=== PATIENT | male | born 1935 | race African-American/Black ===

== ENCOUNTER 2017-02-23 14:33 | Emergency (ER) | payer MEDICARE ==
[2017-02-23 14:52] VITALS: BP 131/66
[2017-02-23] MEDS ORDERED: MECLIZINE HCL 25 MG TABLET PO ONE (15:51)
[2017-02-23] MEDS ORDERED: NORMAL SALINE 1000 ML 1,000 ML IV ONE (15:51)
--- NOTE | 2017-02-23 15:53 | ER Document Report ---
ED Medical Screen (RME) - General Chief Complaint: Dizziness Stated Complaint: DIZZINESS Time Seen by Provider: 02/23/17 15:50 TRAVEL OUTSIDE OF THE [place] IN LAST 30 DAYS: No - HPI Notes: 02/23/17 15:52 Abdominal pain and constipation ongoing for 3-4 days of dizziness today. Patient states feels like the room is spinning around feels like he is drunk. Patient has a history of a heart valve replacement is on Coumadin. States last INR was 2.1 checked last week - Related Data Allergies/Adverse Reactions: Penicillins Allergy (Intermediate, Verified 02/23/17 14:52) swelling Wndpbcp-Ofo-Vlp Reductase Inhibitor Allergy (Mild, Verified 02/23/17 14:52) unknown Past Medical History - Past Medical History Cardiac Medical History: Reports: Hx Hypertension - LISINOPRIL, METOPROLOL Denies: Hx Heart Attack Pulmonary Medical History: Denies: Hx Asthma Neurological Medical History: Denies: Hx Cerebrovascular Accident, Hx Seizures Renal/ Medical History: Denies: Hx Peritoneal Dialysis GI Medical History: Denies: Hx Hepatitis, Hx Hiatal Hernia, Hx Ulcer Infectious Medical History: Denies: Hx Hepatitis Past Surgical History: Reports: Hx Cardiac Surgery, Hx Open Heart Surgery - HEART VALVE INSERTED. Denies: Hx Pacemaker - Immunizations Hx Diphtheria, Pertussis, Tetanus Vaccination: - unknown Review of Systems - Review of Systems Constitutional: Other - Dizziness Physical Exam - Vital signs Vitals: Temp Pulse Resp BP Pulse Ox 97.8 F 62 16 131/66 H 96 02/23/17 14:47 02/23/17 14:47 02/23/17 14:47 02/23/17 14:47 02/23/17 14:47 - Respiratory Respiratory status: No respiratory distress Chest status: Nontender Breath sounds: Normal Chest palpation: Normal Course - Vital Signs Vital signs: Temp Pulse Resp BP Pulse Ox 97.8 F 62 16 131/66 H 96 02/23/17 14:47 02/23/17 14:47 02/23/17 14:47 02/23/17 14:47 02/23/17 14:47
[2017-02-23 16:24] LABS: ABSOLUTE EOSINOPHILS # (AUTO) 0.1 10^3/uL (0.0-0.6); ABSOLUTE LYMPHOCYTES (AUTO) 1.5 10^3/uL (0.5-4.7); ABSOLUTE MONOCYTES (AUTO) 0.8 10^3/uL (0.1-1.4); ABSOLUTE NEUT (AUTO) 1.4 10^3/uL (1.7-8.2); BASOPHILS % (AUTO) 0.4 % (0-2); EOSINOPHILS % (AUTO) 3.2 % (0-6); HEMATOCRIT 47.9 % (37.9-51.0); HEMOGLOBIN 16.4 g/dL (13.5-17.0); HGB HCT DIFFERENCE 1.3; LYMPHOCYTES % (AUTO) 39.7 % (13-45); MEAN CORPUSCULAR HGB CONC 34.1 g/dL (32.0-36.0); MEAN CORPUSCULAR VOLUME 97 fl (80-97); MONOCYTES % (AUTO) 19.9 % (3-13); RED BLOOD COUNT 4.97 10^6/uL (4.35-5.55); RED CELL DISTRIBUTION WIDTH 14.6 % (11.5-14.0); SEGMENTED NEUTROPHILS % (AUTO) 36.8 % (42-78); WHITE BLOOD COUNT 3.8 10^3/uL (4.0-10.5)
[2017-02-23 16:30] LABS: PARTIAL THROMBOPLASTIN TIME 39.9 SEC (23.5-35.8)
[2017-02-23 16:43] LABS: ALANINE AMINOTRANSFERASE 51 U/L (21-72); ALBUMIN 4.4 g/dL (3.5-5.0); ALKALINE PHOSPHATASE 67 U/L (38-126); ANION GAP 13 (5-19); ASPARTATE AMINO TRANSFERASE 55 U/L (17-59); BILIRUBIN,DIRECT 0.4 mg/dL (0.0-0.4); BILIRUBIN,TOTAL 0.9 mg/dL (0.2-1.3); BLOOD UREA NITROGEN 18 mg/dL (7-20); CALCIUM 10.4 mg/dL (8.4-10.2); CARBON DIOXIDE 28 mmol/L (22-30); CHLORIDE 98 mmol/L (98-107); CREATININE RESULT 1.18 mg/dL (0.52-1.25); GLUCOSE 109 mg/dL (75-110); LIPASE 278.9 U/L (23-300); MAGNESIUM 2.5 mg/dL (1.6-2.3); POTASSIUM 4.6 mmol/L (3.6-5.0); SODIUM 139.1 mmol/L (137-145); TOTAL PROTEIN 7.6 g/dL (6.3-8.2)
--- NOTE | 2017-02-23 16:55 | RADIOLOGY REPORT (SQ) ---
EXAM DESCRIPTION: ACUTE ABDOMEN SERIES COMPLETED DATE/TIME: 02/23/2017 4:47 pm REASON FOR STUDY: abd pain n/v COMPARISON: None. NUMBER OF VIEWS: Three views. TECHNIQUE: Frontal chest, supine abdomen and upright/decubitus abdomen radiographic images acquired. LIMITATIONS: None. FINDINGS: CHEST: Lungs clear of infiltrates. FREE AIR: None. No abnormal gas collections. BOWEL GAS PATTERN: Nonobstructive pattern. No dilated loops or air fluid levels. CALCIFICATIONS: No suspicious calcifications. HARDWARE: None in the abdomen. SOFT TISSUES: No gross mass or suggestion of organomegaly. BONES: No acute fracture. No worrisome bone lesions. OTHER: Median sternotomy wires noted and intact. Prior CABG. IMPRESSION: NO RADIOGRAPHIC EVIDENCE FOR ACUTE ABDOMINAL DISEASE. TECHNICAL DOCUMENTATION: JOB ID: [id number] [employer]- All Rights Reserved
--- NOTE | 2017-02-23 17:00 | RADIOLOGY REPORT (SQ) ---
EXAM DESCRIPTION: CT HEAD WITHOUT COMPLETED DATE/TIME: 02/23/2017 4:51 pm REASON FOR STUDY: dizzy COMPARISON: 04/09/2014 TECHNIQUE: Axial images acquired through the brain without intravenous contrast. Images reviewed wi th bone, brain and subdural windows. Images stored on PACS. All CT scanners at this facility use dose modulation, iterative reconstruction, and/or weight based d osing when appropriate to reduce radiation dose to as low as reasonably achievable (ALARA). [facility]: Dose Right [facility]: CareDose [facility]: Dose Right [facility]: Teradose 4D [facility]: HealthUnlocked RADIATION DOSE: mGy. LIMITATIONS: None. FINDINGS: VENTRICLES: Prominent. CEREBRUM: No masses. No hemorrhage. No midline shift. Areas of low density in the white matter mos t likely due to chronic micro-vascular ischemic change. No evidence for acute infarction. CEREBELLUM: No masses. No hemorrhage. No alteration of density. No evidence for acute infarction. EXTRAAXIAL SPACES: Age-related involutional change. No fluid collections. No masses. ORBITS AND GLOBE: No intra- or extraconal masses. Normal contour of globe without masses. CALVARIUM: No fracture. PARANASAL SINUSES: No fluid or mucosal thickening. SOFT TISSUES: No mass or hematoma. OTHER: No other significant finding. IMPRESSION: CHRONIC CHANGES OF ATROPHY AND MICROVASCULAR ISCHEMIA. NO ACUTE PROCESS. TECHNICAL DOCUMENTATION: JOB ID: [id number] Quality ID # [id number]: Final reports with documentation of one or more dose reduction techniques (e.g., Au tomated exposure control, adjustment of the mA and/or kV according to patient size, use of iterative reconstruction technique) 2010 [employer]- All Rights Reserved
--- NOTE | 2017-02-23 17:14 | ER Document Report ---
ED Dizziness/Weakness - General Information source: Patient TRAVEL OUTSIDE OF THE [place] IN LAST 30 DAYS: No - HPI Patient complains to provider of: Dizziness Onset: This morning Associated symptoms: Other - see above <PINA GONZALEZ - Last Filed: 02/23/17 17:49> <DREW ALLISON - Last Filed: 02/24/17 00:14> - General Chief Complaint: Dizziness Stated Complaint: DIZZINESS Time Seen by Provider: 02/23/17 15:50 Notes: Patient is an 81 year old male who presents to the ED with complaints of dizziness with onset this morning while he was ironing a shirt. Patient states he had some improvement when he sat down and the dizziness was worse when he was standing and moving around. Patient states it does not get worse when turning his head from side to side. He denies nausea, chest pain, dyspnea, or blurred vision. He has had some rhinnorhea and right ear ringing but denies congestion. He is on Coumadin. Patients family member adds that the patient has had some heartburn recently. He took some Pepcid and Apple Cider Vinegar water with relief. PCP: BRADLEY (PINA GONZALEZ) - Related Data Allergies/Adverse Reactions: Penicillins Allergy (Intermediate, Verified 02/23/17 14:52) swelling Pntouns-Dlh-Iqp Reductase Inhibitor Allergy (Mild, Verified 02/23/17 14:52) unknown Past Medical History - General Information source: Patient - Social History Smoking Status: Never Smoker Chew tobacco use (# tins/day): No Frequency of alcohol use: None Drug Abuse: None Family History: Reviewed & Not Pertinent Patient has suicidal ideation: No Patient has homicidal ideation: No - Past Medical History Cardiac Medical History: Reports: Hx Hypertension - LISINOPRIL, METOPROLOL Denies: Hx Heart Attack Pulmonary Medical History: Denies: Hx Asthma Neurological Medical History: Denies: Hx Cerebrovascular Accident, Hx Seizures Renal/ Medical History: Denies: Hx Peritoneal Dialysis GI Medical History: Denies: Hx Hepatitis, Hx Hiatal Hernia, Hx Ulcer Infectious Medical History: Denies: Hx Hepatitis Past Surgical History: Reports: Hx Cardiac Surgery, Hx Open Heart Surgery - HEART VALVE INSERTED. Denies: Hx Pacemaker - Immunizations Hx Diphtheria, Pertussis, Tetanus Vaccination: - unknown <PINA GONZALEZ - Last Filed: 02/23/17 17:49> Review of Systems - Review of Systems Constitutional: No symptoms reported EENT: See HPI, Other - rhinorrhea, right ear ringing. denies: Blurred vision, Nose congestion Cardiovascular: See HPI, Dizziness. denies: Chest pain Respiratory: See HPI. denies: Short of breath Gastrointestinal: See HPI. denies: Nausea Genitourinary: No symptoms reported Male Genitourinary: No symptoms reported Musculoskeletal: No symptoms reported Skin: No symptoms reported Hematologic/Lymphatic: No symptoms reported Neurological/Psychological: No symptoms reported <CARLOSABHISHEKPINA - Last Filed: 02/23/17 17:49> Physical Exam <CARLOSPINA - Last Filed: 02/23/17 17:49> <DREW ALLISON - Last Filed: 02/24/17 00:14> - Vital signs Vitals: Temp Pulse Resp BP Pulse Ox 97.8 F 62 16 131/66 H 96 02/23/17 14:47 02/23/17 14:47 02/23/17 14:47 02/23/17 14:47 02/23/17 14:47 - Notes Notes: GENERAL: Alert, interacts well. No acute distress. HEAD: Normocephalic, atraumatic. EYES: Pupils equal, round, and reactive to light. Extraocular movements intact. ENT: Oral mucosa moist, tongue midline. Nares patent, no nasal septal hematoma. No post nasal drip. Left TM is normal, right TM is bulging and injected. NECK: Full range of motion. Supple. Trachea midline. LUNGS: Clear to auscultation bilaterally, no wheezes, rales, or rhonchi. No respiratory distress. HEART: Regular rate and rhythm. 2/6 systolic murmur with closing click. No gallops, or rubs. ABDOMEN: Soft, non-tender. Non-distended. Bowel sounds present in all 4 quadrants. EXTREMITIES: Moves all 4 extremities spontaneously. No edema, radial and dorsalis pedis pulses 2/4 bilaterally. No cyanosis. NEUROLOGICAL: Alert and oriented x3. Normal speech. cranial nerves II through XII grossly intact. Normal finger to nose and heel to triplett test. Biceps and patellar DTRs 2+ bilaterally. PSYCH: Normal affect, normal mood. SKIN: Warm, dry, normal turgor. No rashes or lesions noted. (PINA GONZALEZ) Course - Laboratory Result Diagrams: 02/23/17 16:05 02/23/17 16:05 <PINA GONZALEZ - Last Filed: 02/23/17 17:49> - Laboratory Result Diagrams: 02/23/17 16:05 02/23/17 16:05 <DREW ALLISON - Last Filed: 02/24/17 00:14> - Re-evaluation Re-evalutation: 02/23/17 19:43 CBC shows mildly low white blood cell count 3.8 otherwise unremarkable, INR is therapeutic at 2.02, patient states that they intentionally leave him between 2 and 3 rather than 2.5-3.5, chemistries grossly unremarkable, cardiac enzymes negative 2 and trending downwards, acute abdominal series shows no acute process, head CT shows no acute process. Dizziness has resolved after Antivert. Patient ambulates without difficulty. EKG is nonischemic. Symptoms consistent with peripheral vertigo coming from likely seasonal allergy type symptoms, right tympanic membrane is bulging and injected. Patient complains of rhinorrhea. Patient will be started on Antivert and nasal steroids. Discharged home. 02/24/17 00:14 Gait reassessed at the end of the visit and normal. (DREW ALLISON) - Vital Signs Vital signs: Temp Pulse Resp BP Pulse Ox 97.8 F 62 16 131/66 H 96 02/23/17 14:47 02/23/17 14:47 02/23/17 14:47 02/23/17 14:47 02/23/17 14:47 - Laboratory Laboratory results interpreted by me: 02/23/17 02/23/17 02/23/17 16:05 16:05 16:05 WBC 3.8 L RDW 14.6 H Seg Neutrophils % 36.8 L Monocytes % 19.9 H Absolute Neutrophils 1.4 L PT 24.0 H APTT 39.9 H Est GFR (Non-Af Amer) 59 L Calcium 10.4 H Magnesium 2.5 H - EKG Interpretation by Me Additional EKG results interpreted by me: 02/23/17 19:41 EKG shows sinus bradycardia at a rate of 58 with a first-degree AV block, incomplete left bundle branch block, LVH, T-wave inversion in 1 and aVL as well as biphasic T waves in V4 and V5 per my interpretation. (DREW ALLISON) Discharge <PINA GONZALEZ - Last Filed: 02/23/17 17:49> <DREW ALLISON - Last Filed: 02/24/17 00:14> - Discharge Clinical Impression: Vertigo Allergic rhinitis Qualifiers: Chronicity: acute Allergic rhinitis trigger: pollen Allergic rhinitis seasonality: seasonal Qualified Code(s): J30.1 - Allergic rhinitis due to pollen Hypertension Qualifiers: Hypertension type: essential hypertension Qualified Code(s): I10 - Essential ( primary) hypertension Condition: Stable Disposition: HOME, SELF-CARE Additional Instructions: Vertigo You have experienced an episode of vertigo -- a whirling dizziness which may be accompanied by nausea and vomiting or staggering. Vertigo is often caused by an irritation of the inner ear, in which case it is called labyrinthitis. It can also be a symptom of a degenerating inner ear, nerve damage, or brain injury. Your physician has evaluated you to determine whether any further testing is necessary. Vertigo is often treated with dramamine or meclizine. These medications are helpful, but stronger medication may be needed if you are vomiting. Rest in bed. You should not drive or operate machinery until completely better. It may take one to three weeks for recovery. If there are new symptoms, such as decreased hearing or vision, severe headache, weakness or faintness, or confusion, call the physician. I think your vertigo is coming from your sinus issues, they appear to be seasonal allergies. Please take daily Dominga or Claritin, use the nasal steroids 1 spray per nostril twice a day and take the Antivert as needed for dizziness. Return here for any new or worsening symptoms including chest pain, weakness, trouble speaking or headache. Prescriptions: Meclizine HCl [Antivert 12.5 mg Tablet] 12.5 mg PO Q6HP PRN #30 tablet PRN Reason: Mometasone Furoate [Nasonex] 17 gm NS BID #1 spray.pump Forms: Parent Work Note Referrals: VALERIE BENJAMIN JR, MD [Primary Care Provider] - Follow up as needed Scribe Attestation: 02/24/17 00:14 I personally performed the services described in the documentation, reviewed and edited the documentation which was dictated to the scribe in my presence, and it accurately records my words and actions. (DREW ALLISON) Scribe Documentation - Scribe Written by Erum:: erum Bello, 02/23/2017, 1749 acting as scribe for :: Cristobal <PINA GONZALEZ - Last Filed: 02/23/17 17:49>
--- NOTE | 2017-02-23 22:02 | EKG REPORT ---
SEVERITY:- ABNORMAL ECG - SINUS RHYTHM FIRST DEGREE AV BLOCK PROBABLE LEFT ATRIAL ABNORMALITY INCOMPLETE LEFT BUNDLE BRANCH BLOCK LVH WITH SECONDARY REPOLARIZATION ABNORMALITY : Confirmed by: Griffin Quick 23-Feb-2017 22:01:57
== END 2017-02-23 19:57 | disposition home or self-care (01) ==
LOC: ER 14:33
DX: R42 Dizziness and giddiness (principal); J30.1 Allergic rhinitis due to pollen; I10 Essential (primary) hypertension; Z88.0 Allergy status to penicillin; Z95.2 Presence of prosthetic heart valve
CPT/HCPCS: 93005; 99284; 96360; 36415; 83690; 83735; 85025; 85610; 85730; 80053; 84484; 74022; 70450; 93010; A9270; J7030

== ENCOUNTER 2017-08-02 18:54 | Emergency (ER) | payer OTHER, MEDICARE ==
[2017-08-02] MEDS ORDERED: METOPROLOL SUCCINATE 25 MG TAB.SR.24H PO ONE (19:38)
--- NOTE | 2017-08-02 19:40 | ER Document Report ---
ED General - General Chief Complaint: Medication Refill Stated Complaint: MEDICATION REFILL Time Seen by Provider: 08/02/17 19:24 Mode of Arrival: Ambulatory Information source: Patient Notes: Patient is an 81-year-old male with a history of hypertension, a heart valve on metoprolol who has been out of his metoprolol for 2 days. Patient called the [facility] and they state that it is in the mail on the way to him, but patient went to the pharmacy and asked for "a few to hold me over and they refuse." Patient denies any chest pain, shortness of breath, headache, blurred vision, weakness or numbness or tingling anywhere. TRAVEL OUTSIDE OF THE [place] IN LAST 30 DAYS: No - Related Data Allergies/Adverse Reactions: Penicillins Allergy (Intermediate, Verified 08/02/17 18:55) swelling Sidhqdg-Juj-Fug Reductase Inhibitor Allergy (Mild, Verified 08/02/17 18:55) unknown Past Medical History - General Information source: Patient - Social History Smoking Status: Unknown if Ever Smoked Chew tobacco use (# tins/day): No Frequency of alcohol use: None Drug Abuse: None Family History: Reviewed & Not Pertinent Patient has suicidal ideation: No Patient has homicidal ideation: No - Past Medical History Cardiac Medical History: Reports: Hx Hypertension - LISINOPRIL, METOPROLOL Denies: Hx Heart Attack Pulmonary Medical History: Denies: Hx Asthma Neurological Medical History: Denies: Hx Cerebrovascular Accident, Hx Seizures Renal/ Medical History: Denies: Hx Peritoneal Dialysis GI Medical History: Denies: Hx Hepatitis, Hx Hiatal Hernia, Hx Ulcer Infectious Medical History: Denies: Hx Hepatitis Past Surgical History: Reports: Hx Cardiac Surgery, Hx Open Heart Surgery - HEART VALVE INSERTED. Denies: Hx Pacemaker - Immunizations Hx Diphtheria, Pertussis, Tetanus Vaccination: - unknown Review of Systems - Review of Systems Constitutional: No symptoms reported EENT: No symptoms reported Cardiovascular: See HPI Respiratory: No symptoms reported Gastrointestinal: No symptoms reported Genitourinary: No symptoms reported Male Genitourinary: No symptoms reported Musculoskeletal: No symptoms reported Skin: No symptoms reported Hematologic/Lymphatic: No symptoms reported Neurological/Psychological: No symptoms reported Physical Exam - Vital signs Vitals: Temp Pulse Resp BP Pulse Ox 97.6 F 96 18 179/78 H 96 08/02/17 19:12 08/02/17 19:12 08/02/17 19:12 08/02/17 19:12 08/02/17 19:12 - Notes Notes: PHYSICAL EXAMINATION: GENERAL: Well-appearing and in no acute distress. HEAD: Atraumatic, normocephalic. EYES: Pupils equal round and reactive to light, extraocular movements intact, sclera anicteric, conjunctiva are normal. NECK: Normal range of motion, supple without lymphadenopathy LUNGS: CTAB and equal. No wheezes rales or rhonchi. HEART: Regular rate and rhythm without murmurs ABDOMEN: Soft, no tenderness. No guarding, no rebound BACK: no vertebral tenderness, normal ROM GI/: no CVA tenderness EXTREMITIES: Normal range of motion, no pitting edema. No cyanosis. NEUROLOGICAL: Cranial nerves grossly intact. Normal sensory/motor exams. PSYCH: Normal mood, normal affect. SKIN: Warm, Dry, normal turgor, no rashes or lesions noted Course - Re-evaluation Re-evalutation: 08/02/17 20:33 metoprolol given here and pt sent home with rx for metoprolol succ 25mg bid as he normally takes it. - Vital Signs Vital signs: Temp Pulse Resp BP Pulse Ox 97.6 F 96 18 179/78 H 96 08/02/17 19:12 08/02/17 19:12 08/02/17 19:12 08/02/17 19:12 08/02/17 19:12 Discharge - Discharge Clinical Impression: HTN (hypertension) Qualifiers: Hypertension type: unspecified Qualified Code(s): I10 - Essential (primary) hypertension Condition: Stable Disposition: HOME, SELF-CARE Additional Instructions: Return immediately for any new or worsening symptoms. Follow up with primary care provider, call tomorrow to make followup appointment. Prescriptions: Metoprolol Succinate 25 mg PO BID #14 tab.er.24h
[2017-08-02 20:49] VITALS: BP 142/66
--- NOTE | 2017-08-03 08:54 | EKG REPORT ---
SEVERITY:- ABNORMAL ECG - SINUS RHYTHM VENTRICULAR PREMATURE COMPLEX FIRST DEGREE AV BLOCK ABNORMAL T, CONSIDER ISCHEMIA, DIFFUSE LEADS, INCREASED FROM 02/23/17 EKG : Confirmed by: Ángel Mendez MD 03-Aug-2017 08:53:32
== END 2017-08-02 20:50 | disposition home or self-care (01) ==
LOC: ER 18:54
DX: Z76.0 Encounter for issue of repeat prescription (principal); I10 Essential (primary) hypertension; Z79.899 Other long term (current) drug therapy
CPT/HCPCS: 93005; 93010; 99282

== ENCOUNTER 2017-08-13 12:17 | Emergency (ER) | payer OTHER, MEDICARE ==
[2017-08-13] MEDS ORDERED: METOPROLOL SUCCINATE 25 MG TAB.SR.24H PO ONE (14:42)
--- NOTE | 2017-08-13 14:47 | ER Document Report ---
HPI - HPI Patient complains to provider of: Medication refill Onset: Other - [facility] Quality of pain: No pain Pain Level: 0 Context: 81-year-old male presents to ED for blood pressure medicine he states that he takes a half a Toprol XL 50 mg twice daily. States he needs 25 mg right now and a prescription for 30 days as [facility] not [facility] as [facility] were supposed to. Associated Symptoms: Other - Out of medication Exacerbated by: Denies Relieved by: Denies Similar symptoms previously: Yes Recently seen / treated by doctor: No - ROS ROS below otherwise negative: Yes - CONSTITUTIONAL Constitutional: DENIES: Fever, Chills - EENT EENT: DENIES: Sore Throat, Ear Pain, Nasal Drainage-Clear, Nasal Drainage- Purulent, Congestion, Eye problems - NEURO Neurology: DENIES: Headache, Weakness, Vision blurred, Dizzinesss / Vertigo - CARDIOVASCULAR Cardiovascular: DENIES: Chest pain - RESPIRATORY Respiratory: DENIES: Trouble Breathing, Coughing - GASTROINTESTINAL Gastrointestinal: DENIES: Abdominal Pain, Nausea, Patient vomiting, Diarrhea, Constipation, Black / Bloody Stools - URINARY Urinary: DENIES: Dysuria, Urgency, Frequency - REPRODUCTIVE Reproductive: DENIES: :, Postmenopausal, Abnormal bleeding / discharge - MUSCULOSKELETAL Musculoskeletal: DENIES: Extremity pain, Back Pain, Neck Pain, Swelling - DERM Skin Color: Normal Skin Problems: None Past Medical History - General Information source: Patient - Social History Smoking Status: Former Smoker Cigarette use (# per day): No Chew tobacco use (# tins/day): No Smoking Education Provided: No Frequency of alcohol use: None Drug Abuse: None Lives with: Family Family History: Reviewed & Not Pertinent Patient has suicidal ideation: No Patient has homicidal ideation: No - Past Medical History Cardiac Medical History: Reports: Hx Coronary Artery Disease, Hx Hypercholesterolemia, Hx Hypertension - LISINOPRIL, METOPROLOL, Hx Heart Murmur Pulmonary Medical History: Reports: None EENT Medical History: Reports: None Neurological Medical History: Reports: None Endocrine Medical History: Reports: None Renal/ Medical History: Reports: None Malignancy Medical History: Reports None GI Medical History: Reports: None Musculoskeltal Medical History: Reports None Skin Medical History: Reports None Psychiatric Medical History: Reports: None Traumatic Medical History: Reports: None Infectious Medical History: Reports: None Past Surgical History: Reports: Hx Cardiac Surgery, Hx Open Heart Surgery - HEART VALVE INSERTED. Denies: Hx Pacemaker - Immunizations Hx Diphtheria, Pertussis, Tetanus Vaccination: - unknown Vertical Provider Document - CONSTITUTIONAL Agree With Documented VS: Yes Notes: PHYSICAL EXAMINATION: GENERAL: Well-appearing, well-nourished and in no acute distress. Patient states his only concern is he needs his blood pressure medication HEAD: Atraumatic, normocephalic. EYES: Pupils equal round and reactive to light, extraocular movements intact, sclera anicteric, conjunctiva are normal. ENT: Nares patent, oropharynx clear without exudates. Moist mucous membranes. NECK: Normal range of motion, supple without lymphadenopathy LUNGS: Breath sounds clear to auscultation bilaterally and equal. No wheezes rales or rhonchi. HEART: Regular rate and rhythm without murmurs can definitely hear the artificial heart valve lungs clear ABDOMEN: Soft, nontender, nondistended abdomen. No guarding, no rebound. No masses appreciated. Musculoskeletal: Normal range of motion, no pitting or edema. No cyanosis. NEUROLOGICAL: Cranial nerves grossly intact. Normal speech, normal gait. Normal sensory, motor exams PSYCH: Normal mood, normal affect. SKIN: Warm, Dry, normal turgor, no rashes or lesions noted. - RESPIRATORY O2 Sat by Pulse Oximetry: 96 Course - Re-evaluation Re-evalutation: 08/13/17 14:52 Patient presented to ED for a prescription for Toprol-XL 50 mg one half p.o. twice daily [facility] per [facility]. [facility] per [facility] not [facility] his [facility] as per usual. He states his been over 2 weeks since he received his blood pressure medicine and he cannot go without his medication. He states he did call [facility] and they are ensuring that he gets them within the next week or so. He has requested a month supply to be sure that he has medication until they are sent to him. Patient was written a prescription for 30 days as per the prescription bottle he has on his possession. - Vital Signs Vital signs: Temp Pulse Resp BP Pulse Ox 98.5 F 70 17 136/64 H 96 08/13/17 12:24 08/13/17 12:24 08/13/17 12:24 08/13/17 12:24 08/13/17 12:24 Discharge - Discharge Clinical Impression: Medication refill Condition: Stable Disposition: HOME, SELF-CARE Additional Instructions: You were seen today for a refill on your metoprolol 50 mg one half pill twice a day. He states the [facility] not [facility] you and when you will not get it before at least Saturday. She states her allergy medicines yesterday and you need one medication today. Please call your primary doubt doctor and schedule a follow-up for your follow- up medication after this prescription. FOLLOW-UP CARE: If you have been referred to a physician for follow-up care, call the physician s office for an appointment as you were instructed or within the next two days. If you experience worsening or a significant change in your symptoms, notify the physician immediately or return to the Emergency Department at any time for re-evaluation. Prescriptions: Metoprolol Succinate [Toprol Xl] 25 mg PO BID #30 tab.er.24h Forms: Elevated Blood Pressure
[2017-08-13 15:10] VITALS: BP 140/73
== END 2017-08-13 15:10 | disposition home or self-care (01) ==
LOC: ER 12:17
DX: Z76.0 Encounter for issue of repeat prescription (principal); I10 Essential (primary) hypertension; T44.7X6A Underdosing of beta-adrenoreceptor antagonists, initial encounter; Z91.128 Patient's intentional underdosing of medication regimen for other reason; Z91.14 Patient's other noncompliance with medication regimen; I25.10 Atherosclerotic heart disease of native coronary artery without angina pectoris; Z87.891 Personal history of nicotine dependence
CPT/HCPCS: 99281

== ENCOUNTER 2018-06-09 10:55 | Emergency (ER) | payer OTHER, MEDICARE ==
[2018-06-09] MEDS ORDERED: IPRATROPIUM/ALBUTEROL 0.5-2.5 MG/3 ML AMPUL NEB ONE ×2 (11:09→13:21)
[2018-06-09] MEDS ORDERED: ALBUTEROL SULFATE 0.083% NEB 2.5 MG/3 ML AMPUL NEB ONE (11:09)
--- NOTE | 2018-06-09 11:11 | ER Document Report ---
ED Medical Screen (RME) - General Chief Complaint: Chest Congestion Stated Complaint: CONGESTION Time Seen by Provider: 06/09/18 11:07 TRAVEL OUTSIDE OF THE [place] IN LAST 30 DAYS: No - HPI Notes: 06/09/18 11:10 Patient is a 82-year-old male that presents to the emergency department for chief complaint of shortness of breath. Patient had sudden onset of shortness of breath yesterday evening. He did use 1 breathing treatment at home with minimal relief. He denies history of COPD or asthma and states he very rarely uses breathing treatments. He feels congested and wheezy. He is denying chest pain, palpitations, fever and cough ROS: GENERAL: Denies fever of chills CV: Denies chest pain PHYSICAL EXAMINATION: GENERAL: Well-appearing, well-nourished and in no acute distress. HEAD: Atraumatic, normocephalic. EYES: Pupils equal round extraocular movements intact, conjunctiva are normal. ENT: Nares patent NECK: Normal range of motion LUNGS: No respiratory distress Musculoskeletal: Normal range of motion NEUROLOGICAL: Normal speech, normal gait. PSYCH: Normal mood, normal affect. MDM: Patient seen and examined for rapid initial assessment. Vital signs reviewed. A comprehensive ED assessment and evaluation of the patient, analysis of test results and completion of the medical decision making process will be conducted by additional ED providers. - Related Data Allergies/Adverse Reactions: Penicillins Allergy (Intermediate, Verified 06/09/18 10:58) swelling [id number] Reductase Inhibitor Allergy (Mild, Verified 06/09/18 10:58) unknown Past Medical History - Past Medical History Cardiac Medical History: Reports: Hx Coronary Artery Disease, Hx Hyp ercholesterolemia, Hx Hypertension - LISINOPRIL, METOPROLOL, Hx Heart Murmur Denies: Hx Heart Attack Pulmonary Medical History: Denies: Hx Asthma Neurological Medical History: Denies: Hx Cerebrovascular Accident, Hx Seizures Renal/ Medical History: Denies: Hx Peritoneal Dialysis GI Medical History: Denies: Hx Hepatitis, Hx Hiatal Hernia, Hx Ulcer Infectious Medical History: Denies: Hx Hepatitis Past Surgical History: Reports: Hx Cardiac Surgery, Hx Open Heart Surgery - HEART VALVE INSERTED. Denies: Hx Pacemaker - Immunizations Hx Diphtheria, Pertussis, Tetanus Vaccination: - unknown Physical Exam - Vital signs Vitals: Temp Pulse Resp BP Pulse Ox 97.6 F 85 18 131/55 H 95 06/09/18 11:02 06/09/18 11:02 06/09/18 11:02 06/09/18 11:02 06/09/18 11:02 Course - Vital Signs Vital signs: Temp Pulse Resp BP Pulse Ox 97.6 F 85 18 131/55 H 95 06/09/18 11:02 06/09/18 11:02 06/09/18 11:02 06/09/18 11:02 06/09/18 11:02
[2018-06-09 11:40] LABS: HEMOGLOBIN 15.2 g/dL (13.5-17.0); MEAN CORPUSCULAR HEMOGLOBIN 31.7 pg (27.0-33.4); MEAN CORPUSCULAR HGB CONC 33.8 g/dL (32.0-36.0); MEAN CORPUSCULAR VOLUME 94 fl (80-97); PLATELET COUNT 200 10^3/uL (150-450); RED BLOOD COUNT 4.81 10^6/uL (4.35-5.55); RED CELL DISTRIBUTION WIDTH 15.1 % (11.5-14.0); WHITE BLOOD COUNT 17.6 10^3/uL (4.0-10.5)
--- NOTE | 2018-06-09 11:43 | ER Document Report ---
ED General - General Chief Complaint: Chest Congestion Stated Complaint: CONGESTION Time Seen by Provider: 06/09/18 11:07 Mode of Arrival: Ambulatory Information source: Patient Notes: 82-year-old male presents emergency department with complaints of shortness of breath that started yesterday. Patient states that he has been coughing up yellow sputum and today he had an episode where he coughed up blood. He is also having associated chills, rhinorrhea, sore throat. No history of sick contacts. Patient states that he has been also wheezing. He denies a history of COPD, asthma. He does not smoke. He denies associated chest pain. TRAVEL OUTSIDE OF THE [place] IN LAST 30 DAYS: No - HPI Onset: Yesterday Onset/Duration: Constant Quality of pain: No pain Severity: None Pain Level: Denies Associated symptoms: Chills, Productive cough, Rhinnorhea, Sore throat Exacerbated by: Denies Relieved by: Denies Similar symptoms previously: No Recently seen / treated by doctor: No - Related Data Allergies/Adverse Reactions: Penicillins Allergy (Intermediate, Verified 06/09/18 10:58) swelling Sddtsgc-Qqi-Ewi Reductase Inhibitor Allergy (Mild, Verified 06/09/18 10:58) unknown Past Medical History - General Information source: Patient - Social History Smoking Status: Never Smoker Family History: Reviewed & Not Pertinent Patient has suicidal ideation: No Patient has homicidal ideation: No - Past Medical History Cardiac Medical History: Reports: Hx Coronary Artery Disease, Hx Hypercholesterolemia, Hx Hypertension - LISINOPRIL, METOPROLOL, Hx Heart Murmur Denies: Hx Heart Attack Pulmonary Medical History: Denies: Hx Asthma Neurological Medical History: Denies: Hx Cerebrovascular Accident, Hx Seizures Renal/ Medical History: Denies: Hx Peritoneal Dialysis GI Medical History: Denies: Hx Hepatitis, Hx Hiatal Hernia, Hx Ulcer Infectious Medical History: Denies: Hx Hepatitis Past Surgical History: Reports: Hx Cardiac Surgery, Hx Open Heart Surgery - HEART VALVE INSERTED. Denies: Hx Pacemaker - Immunizations Hx Diphtheria, Pertussis, Tetanus Vaccination: - unknown Review of Systems - Review of Systems Constitutional: Chills EENT: No symptoms reported, Nose discharge, Throat pain Cardiovascular: No symptoms reported Respiratory: Cough, Wheezing Gastrointestinal: No symptoms reported Genitourinary: No symptoms reported Musculoskeletal: No symptoms reported Skin: No symptoms reported Hematologic/Lymphatic: No symptoms reported Neurological/Psychological: No symptoms reported -: Yes All other systems reviewed and negative Physical Exam - Vital signs Vitals: Temp Pulse Resp BP Pulse Ox 97.6 F 85 18 131/55 H 95 06/09/18 11:02 06/09/18 11:02 06/09/18 11:02 06/09/18 11:02 06/09/18 11:02 - Notes Notes: PHYSICAL EXAMINATION: GENERAL: Well-appearing, well-nourished and in no acute distress. HEAD: Atraumatic, normocephalic. EYES: Pupils equal round and reactive to light, extraocular movements intact, sclera anicteric, conjunctiva are normal. ENT: Nares patent, oropharynx clear without exudates. Moist mucous membranes. NECK: Normal range of motion, supple without lymphadenopathy LUNGS: Diffuse wheezing. No respiratory distress. HEART: Regular rate and rhythm without murmurs ABDOMEN: Soft, nontender, nondistended abdomen. No guarding, no rebound. No masses appreciated. Musculoskeletal: Normal range of motion, no pitting or edema. No cyanosis. NEUROLOGICAL: Cranial nerves grossly intact. Normal speech, normal gait. Normal sensory, motor exams PSYCH: Normal mood, normal affect. SKIN: Warm, Dry, normal turgor, no rashes or lesions noted. Course - Re-evaluation Re-evalutation: 06/09/18 11:42 EKG: Ventricular rate 84, OK interval 260, QRS duration 100, QTc 450, sinus rhythm. PVCs. First-degree AV block. No ST segment elevation. 06/09/18 15:17 Patient has an elevated white blood cell count. Chest x-ray shows left lower lobe infiltrate. Patient's troponin is indeterminate at 0.104. No ST segment changes. I discussed the results with the patient. I told him that he needs to be admitted to the hospital for the pneumonia as well as to monitor the cardiac enzymes. Patient states that he follows up with a team psychologist at [facility]. I contacted [facility]. His team psychologist is out of the country for the next couple of months. Patient requesting transfer to [facility]. He does not want to stay at this hospital. I contacted [facility]. I spoke with Dr. Kaiser. She requested a lactic acid be done. I contacted the facility with the repeat lactic acid values. I went in to reevaluate the patient. His is now at bedside and states that she wants to take him home. Patient and are now declining transfer. I discussed the severity of his condition with him. I told him that he has pneumonia with an elevated white blood cell count and as his troponin is indeterminate and needs to be monitored. Patient states that he wants to finish his levofloxacin while in the emergency department and wants to leave AGAINST MEDICAL ADVICE. He acknowledges that his condition may worsen or he may by leaving AGAINST MEDICAL ADVICE. The nurse was in the room during this discussion. Patient is competent to make medical decisions. I instructed the patient to follow-up with his primary care physician this week and to return to the emergency department if he begins having any worsening symptoms. - Vital Signs Vital signs: Temp Pulse Resp BP Pulse Ox 97.6 F 85 22 H 102/56 L 95 06/09/18 11:02 06/09/18 11:02 06/09/18 15:03 06/09/18 15:03 06/09/18 15:03 - Laboratory Result Diagrams: 06/09/18 11:15 06/09/18 11:15 Laboratory results interpreted by me: 06/09/18 06/09/18 11:15 11:15 WBC 17.6 H RDW 15.1 H Band Neutrophils % 14 H Lymphocytes % (Manual) 5 L Metamyelocytes % 1 H Abs Neuts (Manual) 15.8 H BUN 28 H Creatinine 1.55 H Est GFR ( Amer) 52 L Est GFR (Non-Af Amer) 43 L Discharge - Discharge Clinical Impression: Pneumonia Qualifiers: Pneumonia type: due to unspecified organism Laterality: left Lung location: lower lobe of lung Qualified Code(s): J18.1 - Lobar pneumonia, unspecified organism Condition: Stable Disposition: AGAINST MEDICAL ADVICE
[2018-06-09 11:57] LABS: ALANINE AMINOTRANSFERASE 37 U/L (21-72); ALBUMIN 3.7 g/dL (3.5-5.0); ALKALINE PHOSPHATASE 60 U/L (38-126); ANION GAP 8 (5-19); ASPARTATE AMINO TRANSFERASE 51 U/L (17-59); BILIRUBIN,DIRECT 0.2 mg/dL (0.0-0.4); BILIRUBIN,TOTAL 0.9 mg/dL (0.2-1.3); BLOOD UREA NITROGEN 28 mg/dL (7-20); CALCIUM 9.2 mg/dL (8.4-10.2); CARBON DIOXIDE 30 mmol/L (22-30); CHLORIDE 100 mmol/L (98-107); GLUCOSE 103 mg/dL (75-110); POTASSIUM 4.5 mmol/L (3.6-5.0); SODIUM 137.9 mmol/L (137-145); TOTAL PROTEIN 6.6 g/dL (6.3-8.2)
[2018-06-09 12:06] LABS: ABSOLUTE LYMPHOCYTES# (MANUAL) 0.9 10^3/uL (0.5-4.7); ABSOLUTE MONOCYTES # (MANUAL) 0.9 10^3/uL (0.1-1.4); ABSOLUTE NEUTROPHILS# (MANUAL) 15.8 10^3/uL (1.7-8.2); BASOPHILS % (MANUAL) 0 % (0-2); EOSINOPHILS % (MANUAL) 0 % (0-6); LYMPHOCYTES % (MANUAL) 5 % (13-45); METAMYELOCYTES % (MANUAL) 1 % (0); MONOCYTES % (MANUAL) 5 % (3-13); SEGMENTED NEUTROPHILS % (MAN) 75 % (42-78); TOTAL CELLS COUNTED 100
[2018-06-09 12:07] LABS: ANISOCYTOSIS SLIGHT; HYPOCHROMASIA SLIGHT; PLATELET COMMENT ADEQUATE; POLYCHROMASIA SLIGHT; TOXIC GRANULATION SLIGHT; TOXIC VACUOLATION PRESENT
[2018-06-09 12:10] LABS: BAND NEUTROPHILS % (MANUAL) 14 % (3-5)
--- NOTE | 2018-06-09 12:27 | RADIOLOGY REPORT (SQ) ---
EXAM DESCRIPTION: CHEST SINGLE VIEW COMPLETED DATE/TIME: 06/09/2018 12:14 pm REASON FOR STUDY: SHORTNESS OF BREATH COMPARISON: 10/27/2009 EXAM PARAMETERS: NUMBER OF VIEWS: One view. TECHNIQUE: Single frontal radiographic view of the chest acquired. RADIATION DOSE: NA LIMITATIONS: None. FINDINGS: LUNGS AND PLEURA: There appears to be patchy opacification in the left base, somewhat ill- defined. MEDIASTINUM AND HILAR STRUCTURES: No masses. Contour normal. HEART AND VASCULAR STRUCTURES: Heart size is borderline. No pulmonary edema. BONES: No acute findings. HARDWARE: Sternotomy wires. OTHER: No other significant finding. IMPRESSION: Borderline heart size with no pulmonary edema. Cannot exclude limited left lower lobe p neumonia. TECHNICAL DOCUMENTATION: JOB ID: [id number] [employer]- All Rights Reserved Reading location - IP/workstation name: [email or web address]
[2018-06-09 12:39] LABS: A TYPE INFLUENZA AG NEGATIVE (NEGATIVE); B INFLUENZA AG NEGATIVE (NEGATIVE)
[2018-06-09] MEDS ORDERED: LEVOFLOXACIN 750 MG/D5W RTU 750 MG/150 ML RTUPB IV ONE (13:17)
[2018-06-09 15:12] LABS: PATH REVIEW PATHOLOGIST REVIEWED
[2018-06-09 15:13] VITALS: BP 102/56
--- NOTE | 2018-06-09 16:35 | EKG REPORT ---
SEVERITY:- ABNORMAL ECG - SINUS RHYTHM MULTIPLE VENTRICULAR PREMATURE COMPLEXES FIRST DEGREE AV BLOCK ABNORMAL T, CONSIDER ISCHEMIA, LATERAL LEADS : Confirmed by: Roberta Cabrera MD 09-Jun-2018 16:34:26
--- NOTE | 2018-06-09 16:35 | EKG REPORT ---
SEVERITY:- ABNORMAL ECG - SINUS RHYTHM VENTRICULAR PREMATURE COMPLEX ABNORMAL T, CONSIDER ISCHEMIA, LATERAL LEADS : Confirmed by: Roberta Cabrera MD 09-Jun-2018 16:34:22
== END 2018-06-09 15:29 | disposition left against medical advice (07) ==
LOC: ER 10:55
DX: J18.1 Lobar pneumonia, unspecified organism (principal); R06.02 Shortness of breath; R04.2 Hemoptysis; R68.83 Chills (without fever); J34.89 Other specified disorders of nose and nasal sinuses; J02.9 Acute pharyngitis, unspecified; R06.2 Wheezing; I49.3 Ventricular premature depolarization; I44.0 Atrioventricular block, first degree; I25.10 Atherosclerotic heart disease of native coronary artery without angina pectoris; I10 Essential (primary) hypertension; Z88.0 Allergy status to penicillin; Z88.8 Allergy status to other drugs, medicaments and biological substances; Z95.2 Presence of prosthetic heart valve; Z53.20 Procedure and treatment not carried out because of patient's decision for unspecified reasons
CPT/HCPCS: 93005; 94640 ×2; 99284; 96365; 36415; 85025; 80053; 84484; 83605; 87804; 71045; 93010; J1956; J7620

== ENCOUNTER → 2018-06-25 | Outpatient (CLI) | payer OTHER, MEDICARE ==
--- NOTE | 2018-06-25 12:18 | RADIOLOGY REPORT (SQ) ---
EXAM DESCRIPTION: CHEST PA/LATERAL COMPLETED DATE/TIME: 06/25/2018 11:52 am REASON FOR STUDY: PNEUMONIA, UNSPECIFIED ORGANISM COMPARISON: 06/09/2018. TECHNIQUE: Frontal and lateral radiographic views of the chest acquired. NUMBER OF VIEWS: Two view. LIMITATIONS: None. FINDINGS: LUNGS AND PLEURA: Suspect mild basilar subsegmental atelectasis. No clear evidence of pne umonia or congestive failure. No nodules or masses or pneumothorax. MEDIASTINUM AND HILAR STRUCTURES: Sternal wires intact. Stable contours. HEART AND VASCULAR STRUCTURES: Heart normal size. No evidence for failure. BONES: No acute findings. HARDWARE: None in the chest. OTHER: No other significant finding. IMPRESSION: Mild persistent basilar opacities, likely subsegmental atelectasis. Similar appearance. TECHNICAL DOCUMENTATION: JOB ID: [id number] [employer]- All Rights Reserved Reading location - IP/workstation name: [email or web address]
== END ==
LOC: OD 11:00
PROVIDERS: ATTEND Physician Assistant
DX: J18.9 Pneumonia, unspecified organism (principal)
CPT/HCPCS: 71046

== ENCOUNTER → 2018-11-24 | Outpatient (CLI) | payer MEDICARE ==
--- NOTE | 2018-11-24 16:22 | RADIOLOGY REPORT (SQ) ---
EXAM DESCRIPTION: CHEST PA/LATERAL COMPLETED DATE/TIME: 11/24/2018 4:07 pm REASON FOR STUDY: MILD INTERMITTENT ASTHMA WITH (ACUTE) EXACERBATION COMPARISON: 06/25/2018 TECHNIQUE: Frontal and lateral radiographic views of the chest acquired. NUMBER OF VIEWS: Two view. LIMITATIONS: None. FINDINGS: LUNGS AND PLEURA: No pneumothorax. Increased interstitial changes -bronchial wall thicken ing bilaterally. No consolidation or pleural effusion. MEDIASTINUM AND HILAR STRUCTURES: Stable. HEART AND VASCULAR STRUCTURES: Similar borderline cardiac enlargement. BONES: No acute findings. HARDWARE: CABG. OTHER: No other significant finding. IMPRESSION: Increased interstitial changes -bronchial wall thickening bilaterally. No consolidation or pleural effusion. TECHNICAL DOCUMENTATION: JOB ID: [id number] [place]-[id number] 2010 [employer]- All Rights Reserved Reading location - IP/workstation name: [email or web address]
== END ==
LOC: OD 15:46
PROVIDERS: ATTEND Physician Assistant
DX: J45.21 Mild intermittent asthma with (acute) exacerbation (principal)
CPT/HCPCS: 71046